=== PATIENT | female | born 1990 | race Caucasian/White ===

== ENCOUNTER 2016-12-28 12:01 | Emergency (ER) | payer OTHER ==
[~2016-12-28] VITALS: Ht 167.6 cm; Wt 103.0 kg
[2016-12-28 13:48] VITALS: BP 120/62
== END 2016-12-28 14:30 | disposition home or self-care (01) ==
LOC: ER 14:25
DX: M79.645 Pain in left finger(s) (principal); F12.10 Cannabis abuse, uncomplicated
CPT/HCPCS: 73140; 99284